=== PATIENT | female | born 1985 | race Caucasian/White ===

== ENCOUNTER 2020-09-24 20:07 | Emergency (ER) | payer SELFPAY ==
[~2020-09-24] VITALS: Ht 157.5 cm; Wt 50.0 kg
[2020-09-24 20:30] VITALS: BP 103/46
[2020-09-24] MEDS ORDERED: DIPH,PERTUSS(ACELL),TET VAC/PF 0.5 ML SYRINGE. VAX IM ONE (21:00)
--- NOTE | 2020-09-24 21:15 | PHYS DOC ---
Past History Past Medical History: Arthritis, Other Additional Past Medical Histor: SEPTIC ARTHRITIS. OSTEOMYLITIS Past Surgical History: Other Additional Past Surgical Histo: RIGHT HIP AND LEFT LOWER LEG Additional Smoking Information: PACK/DAY Alcohol Use: Rarely Adult General Chief Complaint Chief Complaint: LACERATION/AVULSION HPI HPI Patient is a 35-year-old female who presents with a hand laceration. States she was using a steak knife to cut some in the tip of the knife went in to the palm of her hand just beneath her right ring finger. Denies any other injuries. States she is not up-to-date on her tetanus vaccinations. States it did not really hurt or bleed much. But, she was worried about her tetanus shot. Review of Systems Review of Systems Review of systems otherwise unremarkable except noted in HPI Current Medications Current Medications Current Medications Medications (Trade) Dose Ordered Sig/Jay Start Time Stop Time Status Last Admin Dose Admin Diphtheria/ Pertussis/Tetanus Vacc (ADACEL TDap SYRINGE) 0.5 ml ONCE ONCE 09/24/20 21:00 09/24/20 21:01 DC 09/24/20 21:01 0.5 ML Allergies Allergies Allergies Coded Allergies Type Severity Reaction Last Updated Verified No Known Drug Allergies 09/24/20 No Physical Exam Physical Exam Constitutional: Well developed, well nourished, no acute distress, non-toxic a ppearance. [] Skin: Warm, dry, no erythema, no rash. [] Extremities: Patient has a half a centimeter linear superficial laceration just underneath the ring finger of the left hand. Bleeding controlled. Range of motion intact. Neurovascular exam intact. Flexion/extension intact. Neurologic: Alert and oriented X 3, no focal deficits noted. [] Psychologic: Affect normal, judgement normal, mood normal. [] Current Patient Data Vital Signs Vital Signs Date Time Temp Pulse Resp B/P (MAP) Pulse Ox O2 Delivery O2 Flow Rate FiO2 09/24/20 20:30 98.8 63 24 103/46 (65) 99 Room Air EKG EKG [] Radiology/Procedures Radiology/Procedures [] Heart Score C/O Chest Pain: No Risk Factors: Risk Factors: DM, Current or recent (<one month) smoker, HTN, HLP, family history of CAD, obesity. Risk Scores: Risk Factors: DM, Current or recent (<one month) smoker, HTN, HLP, family history of CAD, obesity. Course & Med Decision Making Course & Med Decision Making Patient is 35-year-old female who presents with hand laceration Signs not concerning. Physical exam noted above. Wound cleaned and dressed. No need for suture repair. Tetanus updated. Gave information on pain control at home. Gave wound care instructions. Gave return precautions to the ED. Advised to follow-up with primary care as needed. Patient grateful, verbalized understanding and agreed with plan of discharge. [] Dragon Disclaimer Dragon Disclaimer This electronic medical record was generated, in whole or in part, using a voice recognition dictation system. Departure Departure: Impression: Primary Impression: Hand laceration Disposition: HOME / SELF CARE / HOMELESS Condition: GOOD Referrals: PCP,NO (PCP) RISSA BRAY MD Patient Instructions: Laceration Care, Adult Additional Instructions: Please read all the attached information very carefully on management of your wound at home. Please follow-up with your primary care physician as needed. You can use Tylenol, ibuprofen and ice as needed at home for pain control. Please come back to the emergency department with any new or concerning symptoms as discussed. CHRISTOPHER BAINS MD Sep 24, 2020 21:15
== END 2020-09-24 21:20 | disposition home or self-care (01) ==
LOC: ER 20:07
DX: S61.412A Laceration without foreign body of left hand, initial encounter (principal); W26.0XXA Contact with knife, initial encounter; Y93.89 Activity, other specified; Y92.89 Other specified places as the place of occurrence of the external cause; Y99.8 Other external cause status
CPT/HCPCS: 90471; 90715; 99283-25